=== PATIENT | female | born 1975 | race Two or more races ===

== ENCOUNTER 2018-03-11 17:29 | Emergency (ER) | payer SELFPAY ==
[~2018-03-11] VITALS: Ht 157.5 cm; Wt 99.8 kg
[2018-03-11 17:32] VITALS: BP 115/64
--- NOTE | 2018-03-11 18:13 | NUR ---
Patient discharged to home in stable condition. Written and verbal after care instructions given. Patient verbalizes understanding of instruction.
== END 2018-03-11 18:13 | disposition home or self-care (01) ==
LOC: ER 17:34
DX: H60.91 Unspecified otitis externa, right ear (principal)
CPT/HCPCS: 99283; A4606; Z7610

== ENCOUNTER 2020-11-09 13:30 | Emergency (ER) | payer OTHER ==
[~2020-11-09] VITALS: Ht 160 cm; Wt 95.3 kg
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
[2020-11-09] MEDS ORDERED: KETOROLAC TROMETHAMINE INJ 30 MG/ML VIAL IM ONE (14:30)
[2020-11-09] MEDS ORDERED: CYCLOBENZAPRINE 10 MG TABLET PO ONE (14:30)
--- NOTE | 2020-11-09 14:52 | NUR ---
PT IS WHEELED TO CT SCAN.
--- NOTE | 2020-11-09 14:52 | NUR ---
Transported for CT via [facility].
[2020-11-09] MEDS ORDERED: KETOROLAC TROMETHAMINE 15 MG/ML VIAL ONE (14:53)
[2020-11-09] MEDS ORDERED: CYCLOBENZAPRINE 10 MG TABLET ONE (14:53)
[2020-11-09] MEDS ORDERED: CYCL5TAB PO (15:24)
[2020-11-09] MEDS ORDERED: IBUP-1957 PO (15:24)
[2020-11-09 15:40] VITALS: BP 129/71
--- NOTE | 2020-11-09 15:40 | NUR ---
Patient discharged to home in stable condition. Written and verbal after care instructions given. Patient verbalizes understanding of instruction.
== END 2020-11-09 15:42 | disposition home or self-care (01) ==
LOC: ER 13:37
DX: S13.4XXA Sprain of ligaments of cervical spine, initial encounter (principal); Z79.899 Other long term (current) drug therapy; V49.59XA Passenger injured in collision with other motor vehicles in traffic accident, initial encounter; Y93.89 Activity, other specified; Y92.413 State road as the place of occurrence of the external cause; Y99.8 Other external cause status
CPT/HCPCS: 70450; 72125; 84703; 96372; 99285; J1885

== ENCOUNTER 2023-11-22 17:48 | Emergency (ER) | payer OTHER ==
[~2023-11-22 17:48] MED LIST: CYCL5TAB PO; IBUP-1957 PO
== END 2023-11-22 21:16 | disposition left against medical advice (07) ==
LOC: ER 18:02
DX: R22.40 Localized swelling, mass and lump, unspecified lower limb (principal); Z53.21 Procedure and treatment not carried out due to patient leaving prior to being seen by health care provider

== ENCOUNTER 2023-11-26 16:25 | Emergency (ER) | payer OTHER ==
[~2023-11-26] VITALS: Ht 160 cm; Wt 108.9 kg
[2023-11-26 17:31] LABS: BASOPHILS # (AUTO) 0.1 K/uL (0.0-0.2); BASOPHILS % (AUTO) 0.9 % (0.0-2.0); EOSINOPHILS # (AUTO) 0.1 K/uL (0.0-0.7); EOSINOPHILS % (AUTO) 1.4 % (0.0-6.0); HEMATOCRIT 31 % (33-45); HEMOGLOBIN 9.6 g/dL (11.5-14.8); LYMPHOCYTES # (AUTO) 2.3 K/uL (0.8-4.8); LYMPHOCYTES % (AUTO) 29.1 % (20.0-44.0); MEAN CORPUSCULAR HEMOGLOBIN 23 PG (26.0-33.0); MEAN CORPUSCULAR HGB CONC 31 g/dl (31.0-36.0); MEAN CORPUSCULAR VOLUME 74 fL (82-100); MONOCYTES # (AUTO) 0.5 K/uL (0.1-1.30); MONOCYTES % (AUTO) 6.6 % (2.0-12.0); NEUTROPHILS # (AUTO) 4.8 K/uL (1.8-8.9); PLATELET COUNT (AUTO) 259 K/uL (150-450); RED CELL DISTRIBUTION WIDTH 17.9 % (11.5-15.0); WHITE BLOOD COUNT (AUTO) 7.7 K/uL (4.3-11.0)
[2023-11-26 17:41] LABS: CALCIUM, SERUM 8.2 mg/dL (8.5-10.1); CARBON DIOXIDE 27 mmol/L (21-32); CHLORIDE 112 mmol/L (98-107); CREATININE 0.8 mg/dL (0.6-1.3); GLUCOSE 114 mg/dL (74-106); POTASSIUM 3.6 mmol/L (3.5-5.1); SODIUM SERUM 146 mmol/L (136-145); UREA NITROGEN, BLOOD 10 mg/dL (7-18)
[2023-11-26 17:55] LABS: ALANINE AMINOTRANSFERASE 45 U/L (12-78); ALBUMIN 2.8 g/dL (3.4-5.0); ALKALINE PHOSPHATASE 110 U/L (46-116); ASPARTATE AMINOTRANSFERASE 30 U/L (15-37); BILIRUBIN,DIRECT 0.1 mg/dL (0.0-0.2); BILIRUBIN,TOTAL 0.5 mg/dL (0.2-1.0); NT-PRO BNP 63 pg/mL (0-125); TOTAL PROTEIN, SERUM 6.4 g/dL (6.4-8.2)
[2023-11-26 18:24] VITALS: BP 138/84; TEMP 98.1; O2SAT 99
[2023-11-26 19:08] LABS: EOSINOPHILS % (MANUAL) 1 % (0-4); LYMPHOCYTES % (MANUAL) 31 % (16-48); MONOCYTES % (MANUAL) 5 % (0-11.0); NEUTROPHILS % (MANUAL) 63 (42-76)
[2023-11-26 19:09] LABS: ANISOCYTOSIS 1+; OVALOCYTES RARE; PLATELET ESTIMATE ADEQUATE
== END 2023-11-26 18:25 | disposition home or self-care (01) ==
LOC: ER 16:27
DX: M79.89 Other specified soft tissue disorders (principal)
CPT/HCPCS: 36415; 71045-TC; 80048-TC; 80076-TC; 83880; 84484-TC; 85025-TC; 93970-TC

== ENCOUNTER 2024-09-29 16:12 | Emergency (ER) | payer OTHER ==
[~2024-09-29] VITALS: Ht 157.5 cm; Wt 113.4 kg
[2024-09-29 17:21] VITALS: BP 122/80; TEMP 98; O2SAT 99
== END 2024-09-29 17:21 | disposition home or self-care (01) ==
LOC: ER 16:12
DX: K42.9 Umbilical hernia without obstruction or gangrene (principal); Z79.1 Long term (current) use of non-steroidal anti-inflammatories (NSAID); Z79.899 Other long term (current) drug therapy

== ENCOUNTER 2024-10-23 23:20 | Emergency (ER) | payer OTHER ==
[~2024-10-23] VITALS: Ht 157.5 cm; Wt 111.1 kg
[2024-10-24 00:52] VITALS: BP 130/78; TEMP 99; O2SAT 96
== END 2024-10-24 00:53 | disposition home or self-care (01) ==
LOC: ER 23:22
DX: K42.9 Umbilical hernia without obstruction or gangrene (principal); Z79.1 Long term (current) use of non-steroidal anti-inflammatories (NSAID)